=== PATIENT | male | born 1980 | race Caucasian/White ===

== ENCOUNTER 2019-03-27 12:00 | Emergency (ER) | payer MEDICAID ==
[~2019-03-27] VITALS: Ht 175.3 cm; Wt 61.0 kg
[~2019-03-27 12:00] MED LIST: NO HOME MEDS
[2019-03-27 12:08] VITALS: BP 110/74
[2019-03-27] MEDS ORDERED: ketorolac trometh inj. 60 MG/2 ML VIAL IM ONE (13:20)
[2019-03-27] MEDS ORDERED: LIDOcaine 5% patch TP ONE (13:20)
[2019-03-27] MEDS ORDERED: IBUP-1985 PO (13:21)
[2019-03-27] MEDS ORDERED: ALBU8.5H8 INH (13:21)
[2019-03-27] MEDS ORDERED: LIDO700A32 TOP (13:24)
[2019-03-27] MEDS ORDERED: ketorolac trometh. 30mg/ml inj. IM ONE (13:25)
== END 2019-03-27 14:35 | disposition home or self-care (01) ==
LOC: ER 12:00
DX: R07.81 Pleurodynia (principal); M79.621 Pain in right upper arm; J45.909 Unspecified asthma, uncomplicated; F17.200 Nicotine dependence, unspecified, uncomplicated; Z79.899 Other long term (current) drug therapy; Z56.0 Unemployment, unspecified
CPT/HCPCS: 96372; 99283; J1885

== ENCOUNTER 2019-06-13 08:04 | Emergency (ER) | payer MEDICAID ==
[~2019-06-13] VITALS: Ht 175.3 cm; Wt 75.0 kg
[~2019-06-13 08:04] MED LIST changes: +ALBU8.5H8 INH; +IBUP-1985 PO; +LIDO700A32 TOP
[2019-06-13 08:13] VITALS: BP 139/89
[2019-06-13] MEDS ORDERED: predniSONE 20 mg tablet PO ONE (08:25)
[2019-06-13] MEDS ORDERED: albuterol 2.5 MG/3 ML nebule NEB ONE (08:25)
[2019-06-13] MEDS ORDERED: PRED20TA PO (08:42)
[2019-06-13] MEDS ORDERED: ALBU18HF2 INH (08:42)
== END 2019-06-13 08:52 | disposition home or self-care (01) ==
LOC: ER 08:05
DX: J45.901 Unspecified asthma with (acute) exacerbation (principal); F15.10 Other stimulant abuse, uncomplicated; F12.90 Cannabis use, unspecified, uncomplicated; F17.200 Nicotine dependence, unspecified, uncomplicated; Z56.0 Unemployment, unspecified; Z79.899 Other long term (current) drug therapy
CPT/HCPCS: 94640; 99283; J7512

== ENCOUNTER 2019-07-26 10:22 | Emergency (ER) | payer MEDICAID ==
[~2019-07-26] VITALS: Ht 175.3 cm; Wt 70.5 kg
[~2019-07-26 10:22] MED LIST changes: +ALBU18HF2 INH
[2019-07-26 10:29] VITALS: BP 96/55
[2019-07-26] MEDS ORDERED: ipratropium/albuterol 3ml nebule NEB ONE (11:50)
[2019-07-26] MEDS ORDERED: PRED10TA PO (11:50)
[2019-07-26] MEDS ORDERED: ALBU8.5H8 IH (12:01)
[2019-07-26] MEDS ORDERED: INHA1SPA3 MC (12:01)
== END 2019-07-26 12:46 | disposition home or self-care (01) ==
LOC: ER 10:22
DX: J45.901 Unspecified asthma with (acute) exacerbation (principal); F12.90 Cannabis use, unspecified, uncomplicated; F15.90 Other stimulant use, unspecified, uncomplicated; Z56.0 Unemployment, unspecified; Z79.899 Other long term (current) drug therapy
CPT/HCPCS: 94640; 94760; 99283

== ENCOUNTER 2019-08-19 11:15 | Emergency (ER) | payer MEDICAID ==
[~2019-08-19] VITALS: Ht 175.3 cm; Wt 66.0 kg
[~2019-08-19 11:15] MED LIST changes: +ALBU8.5H8 IH; +INHA1SPA3 MC; +PRED10TA PO
[2019-08-19 11:52] VITALS: BP 122/78
[2019-08-19] MEDS ORDERED: PRED20TA PO (12:08)
[2019-08-19] MEDS ORDERED: ALBU8.5H8 IH (12:08)
[2019-08-19] MEDS ORDERED: ipratropium/albuterol 3ml nebule NEB ONE (12:10)
--- NOTE | 2019-08-19 12:22 | NUR ---
break note:awaiting RT to admin breathing tx.
== END 2019-08-19 13:08 | disposition home or self-care (01) ==
LOC: ER 11:16
DX: J45.901 Unspecified asthma with (acute) exacerbation (principal); F12.90 Cannabis use, unspecified, uncomplicated; F15.90 Other stimulant use, unspecified, uncomplicated; F17.200 Nicotine dependence, unspecified, uncomplicated; Z56.0 Unemployment, unspecified; Z60.2 Problems related to living alone; Z79.899 Other long term (current) drug therapy
CPT/HCPCS: 94640; 94760; 99283

== ENCOUNTER 2019-12-29 13:10 | Emergency (ER) | payer MEDICAID ==
[~2019-12-29] VITALS: Ht 175.3 cm; Wt 65.0 kg
[2019-12-29 14:17] LABS: BASOPHILS # (AUTO) 0.1 X10'3 (0-0.2); BASOPHILS % (AUTO) 0.3 % (0-1); EOSINOPHILS # (AUTO) 0.1 X10'3 (0-0.9); EOSINOPHILS % (AUTO) 0.6 % (0-6); HEMATOCRIT 37.3 % (42.0-52.0); HEMOGLOBIN 12.8 g/dl (14.0-17.9); LYMPHOCYTES # (AUTO) 1.3 X10'3 (1.1-4.8); LYMPHOCYTES % (AUTO) 6.9 % (21-51); MEAN CORPUSCULAR HEMOGLOBIN 31.7 PG (27.0-31.0); MEAN CORPUSCULAR HGB CONC 34.4 g/dL (33.0-36.5); MEAN CORPUSCULAR VOLUME 92.3 FL (78-98); MEAN PLATELET VOLUME 6.6 FL (7.4-10.4); MONOCYTES # (AUTO) 0.9 X10'3 (0-0.9); MONOCYTES % (AUTO) 4.6 % (2-12); NEUTROPHILS # (AUTO) 16.7 X10'3 (1.8-7.7); NEUTROPHILS % (AUTO) 87.6 % (42-75); PLATELET COUNT 467 X10'3 (140-440); RED BLOOD COUNT 4.04 X10'6 (4.70-6.10); RED CELL DISTRIBUTION WIDTH 12.8 % (11.5-14.5)
[2019-12-29 14:36] LABS: ALANINE AMINOTRANSFERASE 31 U/L (12-78); ALBUMIN 3.3 G/DL (3.4-5.0); ALBUMIN/GLOBULIN RATIO 0.8 (1.1-1.5); ALKALINE PHOSPHATASE 123 IU/L (46-116); ANION GAP 9 (8-16); ASPARTATE AMINO TRANSFERASE 25 U/L (10-37); BILIRUBIN,TOTAL 0.5 MG/DL (0.1-1.0); BLOOD UREA NITROGEN 10 MG/DL (7-18); BUN/CREATININE RATIO 10.9 (5.4-32.0); CALCIUM 9.2 MG/DL (8.5-10.1); CHLORIDE 103 MMOL/L (99-107); CREATININE 0.92 MG/DL (0.60-1.10); GLUCOSE 120 MG/DL (70-104); POTASSIUM 4.1 MMOL/L (3.5-5.1); SODIUM 138 MMOL/L (135-145); TOTAL PROTEIN 7.7 G/DL (6.4-8.2); eGFR > 90 ML/MIN
[2019-12-29] MEDS ORDERED: ibuprofen tablet 400 MG TABLET PO ONE (15:40)
[2019-12-29] MEDS ORDERED: acetaminophen 325mg tablet PO ONE (15:40)
[2019-12-29] MEDS ORDERED: dexamethasone 4mg tablet PO ONE (15:40)
--- NOTE | 2019-12-29 15:49 | NUR ---
REVIEW LABS WITH DR. Clifford. NO NEW ORDERS. WILL TREAT AND DC PER DR. Clifford.
--- NOTE | 2019-12-29 15:52 | NUR ---
DR. Clifford STATES, HES GOT BRONCHITIS, HES GOING HOME
[2019-12-29] MEDS ORDERED: PRED20TA PO (16:29)
[2019-12-29] MEDS ORDERED: DOXY100C43 PO (16:29)
[2019-12-29 16:34] VITALS: BP 116/71
== END 2019-12-29 16:37 | disposition home or self-care (01) ==
LOC: ER 13:10
DX: J44.1 Chronic obstructive pulmonary disease with (acute) exacerbation (principal); J20.9 Acute bronchitis, unspecified; F12.90 Cannabis use, unspecified, uncomplicated; F17.210 Nicotine dependence, cigarettes, uncomplicated; F15.90 Other stimulant use, unspecified, uncomplicated; Z60.2 Problems related to living alone; Z56.0 Unemployment, unspecified; Z79.899 Other long term (current) drug therapy
CPT/HCPCS: 71046; 80053; 83605; 84145; 84484; 85025; 87040; 93005; 99284; 99406

== ENCOUNTER → 2020-04-19 | Emergency (ER) | payer MEDICAID ==
[~2020-04-19] VITALS: Ht 175.3 cm; Wt 62.5 kg
[~2020-04-19] MED LIST changes: +LIDOcaine 1% W/epiNEPHrine 1:200,000 10ml vial IJ ONE; +TETanus/Pertussis (Acell)/Diphther VAC/PF (Tdap-Adult) 0.5ml syringe IMVAC ONE; +tetanus & diphtheria toxoid (Td) vaccine 0.5ml IMVAC ONE
--- NOTE | 2020-04-19 21:23 | NUR ---
PT TO CT
--- NOTE | 2020-04-19 21:38 | NUR ---
BACK FROM CT, HE IS SLEEPING. WHEN THE BP CUFF WENT OFF HE GOT AGITATED. I TOLD HIM IT WAS OK. HE APPEARS TO BE UNDER THE INFLUENCE OF A SUBSTANCE.
--- NOTE | 2020-04-20 00:03 | NUR ---
[facility]INA HAS BEEN CALLED - THERE ARE A COUPLE OF RIDERS AHEAD OF HIM
[2020-04-20 00:25] VITALS: BP 138/103
== END | disposition home or self-care (01) ==
LOC: ER 20:57
DX: S02.2XXA Fracture of nasal bones, initial encounter for closed fracture (principal); S01.01XA Laceration without foreign body of scalp, initial encounter; S01.81XA Laceration without foreign body of other part of head, initial encounter; J45.909 Unspecified asthma, uncomplicated; F12.90 Cannabis use, unspecified, uncomplicated; F15.90 Other stimulant use, unspecified, uncomplicated; Z60.2 Problems related to living alone; Z56.0 Unemployment, unspecified; Z79.899 Other long term (current) drug therapy; V29.3XXA Motorcycle rider (driver) (passenger) injured in unspecified nontraffic accident, initial encounter; Y93.89 Activity, other specified; Y92.488 Other paved roadways as the place of occurrence of the external cause; Y99.8 Other external cause status
CPT/HCPCS: 12002; 12011; 70450; 70486; 72125; 90471; 90715; 99285

== ENCOUNTER 2020-04-25 15:49 | Emergency (ER) | payer MEDICAID ==
[~2020-04-25] VITALS: Ht 175.3 cm; Wt 63.6 kg
[~2020-04-25 15:49] MED LIST changes: -LIDOcaine 1% W/epiNEPHrine 1:200,000 10ml vial IJ ONE; -TETanus/Pertussis (Acell)/Diphther VAC/PF (Tdap-Adult) 0.5ml syringe IMVAC ONE; -tetanus & diphtheria toxoid (Td) vaccine 0.5ml IMVAC ONE
[2020-04-25] MEDS ORDERED: LORA-269 PO (16:03)
[2020-04-25 16:37] VITALS: BP 139/101
== END 2020-04-25 16:40 | disposition home or self-care (01) ==
LOC: ER 15:50
DX: F41.1 Generalized anxiety disorder (principal); R07.81 Pleurodynia; J45.909 Unspecified asthma, uncomplicated; F12.90 Cannabis use, unspecified, uncomplicated; F15.90 Other stimulant use, unspecified, uncomplicated; Z59.0 Homelessness; Z60.2 Problems related to living alone; Z56.0 Unemployment, unspecified; Z79.899 Other long term (current) drug therapy
CPT/HCPCS: 99283

== ENCOUNTER 2020-04-27 13:38 | Emergency (ER) | payer MEDICAID ==
[~2020-04-27] VITALS: Ht 175.3 cm; Wt 79.5 kg
[~2020-04-27 13:38] MED LIST changes: +LORA-269 PO
[2020-04-27 13:41] VITALS: BP 111/81
[2020-04-27] MEDS ORDERED: IBUP-1984 PO (15:01)
[2020-04-27] MEDS ORDERED: ibuprofen tablet 400 MG TABLET PO ONE (15:05)
== END 2020-04-27 15:25 | disposition home or self-care (01) ==
LOC: ER 13:39
DX: S22.42XA Multiple fractures of ribs, left side, initial encounter for closed fracture (principal); R07.89 Other chest pain; R07.81 Pleurodynia; J45.909 Unspecified asthma, uncomplicated; F17.200 Nicotine dependence, unspecified, uncomplicated; F12.90 Cannabis use, unspecified, uncomplicated; F15.90 Other stimulant use, unspecified, uncomplicated; Z72.89 Other problems related to lifestyle; Z60.2 Problems related to living alone; Z56.0 Unemployment, unspecified; Z79.899 Other long term (current) drug therapy; Y93.89 Activity, other specified; Y92.89 Other specified places as the place of occurrence of the external cause; Y99.8 Other external cause status
CPT/HCPCS: 71046; 99283

== ENCOUNTER 2021-07-31 18:43 | Emergency (ER) | payer MEDICAID, OTHER ==
[~2021-07-31] VITALS: Ht 175.3 cm; Wt 70.0 kg
[~2021-07-31 18:43] MED LIST changes: +ALBU8.5H17 IH; +ALBU8.5H17 INH; -ALBU8.5H8 IH; -ALBU8.5H8 INH
[2021-07-31] MEDS ORDERED: ALBU8.5H17 INH (19:42)
[2021-07-31] MEDS ORDERED: PRED10TA23 PO (19:42)
[2021-07-31 19:54] VITALS: BP 105/69
== END 2021-07-31 19:56 | disposition home or self-care (01) ==
LOC: ER 18:44
DX: J45.901 Unspecified asthma with (acute) exacerbation (principal); R06.02 Shortness of breath; F12.90 Cannabis use, unspecified, uncomplicated; F15.90 Other stimulant use, unspecified, uncomplicated; Z72.89 Other problems related to lifestyle; Z60.2 Problems related to living alone; Z56.0 Unemployment, unspecified; Z79.899 Other long term (current) drug therapy
CPT/HCPCS: 99283

== ENCOUNTER 2021-09-20 01:54 | Emergency (ER) | payer MEDICAID ==
[~2021-09-20] VITALS: Ht 175.3 cm; Wt 70.5 kg
[2021-09-20 01:57] VITALS: BP 96/64
[2021-09-20] MEDS ORDERED: PRED20TA PO (02:15)
[2021-09-20] MEDS ORDERED: predniSONE 20 mg tablet PO ONE (02:15)
== END 2021-09-20 02:45 | disposition home or self-care (01) ==
LOC: ER 01:55
DX: J45.901 Unspecified asthma with (acute) exacerbation (principal); R06.02 Shortness of breath; F17.200 Nicotine dependence, unspecified, uncomplicated; F12.90 Cannabis use, unspecified, uncomplicated; F15.90 Other stimulant use, unspecified, uncomplicated; Z72.89 Other problems related to lifestyle; Z60.2 Problems related to living alone; Z56.0 Unemployment, unspecified; Z79.899 Other long term (current) drug therapy
CPT/HCPCS: 99283; J7512

== ENCOUNTER 2021-09-23 04:37 | Emergency (ER) | payer MEDICAID ==
[~2021-09-23] VITALS: Ht 175.3 cm; Wt 70.5 kg
[~2021-09-23 04:37] MED LIST changes: +PRED20TA PO
[2021-09-23] MEDS ORDERED: dexamethasone sod phosphate 10mg/ml inj PO STA (04:46)
[2021-09-23] MEDS ORDERED: ALBU8HFA PO (04:46)
[2021-09-23 04:47] VITALS: BP 106/77
== END 2021-09-23 05:52 | disposition home or self-care (01) ==
LOC: ER 04:38
DX: J45.901 Unspecified asthma with (acute) exacerbation (principal); F12.90 Cannabis use, unspecified, uncomplicated; F15.90 Other stimulant use, unspecified, uncomplicated; Z56.0 Unemployment, unspecified; Z79.899 Other long term (current) drug therapy
CPT/HCPCS: 99283; J1100